=== PATIENT | male | born 1990 | race Two or more races ===

== ENCOUNTER → 2024-03-12 | Outpatient (CLI) | payer BC, SELFPAY ==
[2024-03-12 16:22] LABS: Basophils % (Auto) 0 % (0-2.5); Eosinophils # (Auto) 0.1 Thou/mm3 (0.0-0.5); Eosinophils % (Auto) 2 % (0-10); Hematocrit 47.3 % (41.0-53.0); Hemoglobin 16.4 g/dL (13.5-16.0); Immature Granulocytes % (Auto) 0 % (0-0); Immature Granulocytes Auto 0.02 Thou/mm3 (0.00-0.00); Lymphocytes # (Auto) 2.1 Thou/mm3 (1.0-4.8); Lymphocytes % (Auto) 31 % (10-50); Mean Corpuscular HGB Conc 34.7 g/dl (31.0-37.0); Mean Corpuscular Hemoglobin 29.4 pg (25.0-35.0); Mean Corpuscular Volume 85 fL (80-100); Monocytes # (Auto) 0.7 Thou/mm3 (0.0-0.8); Monocytes % (Auto) 10 % (0-12); Neutrophils # (Auto) 3.9 Thou/mm3 (1.8-7.7); Neutrophils % (Auto) 57 % (37-80); Nucleated Red Blood Cell % 0 /100 WBC (0); Platelet Count 212 Thou/mm3 (140-440); RDW Standard Deviation 39.2 fL (35.1-43.9); Red Blood Count 5.57 Miln/mm3 (4.50-5.90); White Blood Count 6.9 Thou/mm3 (3.8-10.6)
[2024-03-12 16:41] LABS: Alanine Aminotransferase 72 U/L (10-49); Albumin, Serum 4.8 gm/dL (3.5-5.0); Albumin/Globulin Ratio 1.9 (1.2-2.2); Alkaline Phosphatase 73 U/L (46-116); Anion Gap 4 (7-16); Aspartate Amino Transferase 49 U/L (0-34); BUN/Creatinine Ratio 8 Ratio (12-20); Bilirubin,Total 0.8 mg/dL (0.3-1.2); Blood Urea Nitrogen 8 mg/dL (9-23); Calcium 9.8 mg/dL (8.3-10.6); Calcium (Corrected) 9.8 mg/dL (8.5-10.1); Carbon Dioxide 26.3 mMol/L (20.0-31.0); Cardiac Risk Estimate 5.8 RATIO (4.0-6.7); Chloride 105 mMol/L (98-107); Cholesterol 238 mg/dL (132-200); Free T4 (Free Thyroxine) 1.22 ng/dL (0.89-1.76); Globulin 2.5 gm/dL (2.3-3.5); Glucose 90 mg/dL (74-106); HDL Cholesterol 41 mg/dL (40-60); LDL Cholesterol,Calculated 146 mg/dL (0-130); Osmolality,Calculated 268 (275-295); Potassium 4.1 mMol/L (3.4-5.1); Sodium 135 mMol/L (136-145); Thyroid Stimulating Hormone 2.12 uIU/mL (0.55-4.78); Total Protein 7.3 gm/dL (5.7-8.2); Triglycerides 256 mg/dL (30-150); eGFR > 60 See Note
== END | disposition home or self-care (01) ==
LOC: COPL 15:01
PROVIDERS: PCP Internal Medicine; Referring Provider Internal Medicine; Visit Provider Internal Medicine
DX: Z00.00 Encounter for general adult medical examination without abnormal findings (principal)
CPT/HCPCS: 36415; 80053; 80061; 84439; 84443; 85025

== ENCOUNTER → 2024-04-07 | Outpatient (CLI) | payer BC, SELFPAY ==
[2024-04-07 15:08] LABS: Hepatitis A Antibody IgM Non Reactive (Non React); Hepatitis B Core Antibody IgM Non Reactive (Non React); Hepatitis B Surface Antigen Non Reactive (Non React); Hepatitis C Antibody Non Reactive (Non React)
== END | disposition home or self-care (01) ==
PROVIDERS: PCP Internal Medicine; Referring Provider Internal Medicine; Visit Provider Internal Medicine
DX: R94.5 Abnormal results of liver function studies (principal)
CPT/HCPCS: 36415; 80074

== ENCOUNTER → 2024-08-21 | Outpatient (CLI) | payer BC, SELFPAY ==
[2024-08-21 10:07] LABS: Alanine Aminotransferase 52 U/L (10-49); Albumin, Serum 4.7 gm/dL (3.5-5.0); Alkaline Phosphatase 79 U/L (46-116); Aspartate Amino Transferase 32 U/L (0-34); Bilirubin,Direct 0.1 mg/dL (0.0-0.3); Bilirubin,Total 0.7 mg/dL (0.3-1.2)
== END | disposition home or self-care (01) ==
LOC: COPL 08:51
PROVIDERS: PCP Internal Medicine; Referring Provider Internal Medicine; Visit Provider Internal Medicine
DX: R94.5 Abnormal results of liver function studies (principal)
CPT/HCPCS: 36415; 80076

== ENCOUNTER 2024-09-08 21:16 | Emergency (ER) | payer OTHER, SELFPAY ==
[2024-09-08 21:16] VITALS: BMI 32.5
[2024-09-08 21:30] VITALS: BP 126/85; PULSE 77; RESP 20; TEMP 36.7; O2SAT 95
--- NOTE | 2024-09-08 22:03 | EDRME_ITS ---
Rapid Medical Screening Exam RME Arrival date/time: 09/08/24 21:16 Chief Complaint: Wound/Laceration Time Seen by Provider: 09/08/24 22:02 Vital signs: Vital Signs Temperature 98.0 F 09/08/24 21:30 Pulse Rate 77 09/08/24 21:30 Respiratory Rate 20 09/08/24 21:30 Blood Pressure 126/85 H 09/08/24 21:30 Pulse Oximetry (%) 95 09/08/24 21:30 Oxygen Delivery Method Room Air 09/08/24 21:30 Vital signs reviewed by provider: Yes RME Narrative: 34-year-old male presents to the ED with complaint of right upper leg laceration secondary to an injury he sustained at work. 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 His last tetanus is unknown. He denies any numbness or tingling distally.
[2024-09-08] MEDS: DIPHTH,PERTUSS(ACELL),TET VAC 0.5 ML SYR- ADULT IMi (22:55)
--- NOTE | 2024-09-08 23:45 | PD.EDADULT ---
ED General RME/HPI General Chief complaint: Wound/Laceration Stated complaint: RT LEG LAC WORKS COMP Time Seen by Provider: 09/08/24 22:02 Arrival date/time: 09/08/24 21:16 RME / HPI RME / HPI narrative: 34-year-old male presents to the ED with complaint of right upper leg laceration secondary to an injury he sustained at work. 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 His last tetanus is unknown. He denies any numbness or tingling distally. Related Data Home Medications ?Medication ?Instructions ?Recorded ?Confirmed No Known Home Medications 03/06/19 03/06/19 Allergies Allergy/AdvReac Type Severity Reaction Status Date / Time amoxicillin Allergy Mild Rash Verified 03/07/19 09:58 Review of Systems Review of Systems Systems Reviewed: All systems reviewed, normal except as documented Past Medical History Past Medical History NEUROLOGIC: Negative Seizures CARDIAC: Negative Congestive Heart Failure RESPIRATORY: Negative Chronic Obstructive Pulmonary Disease (COPD) GENITOURINARY: Negative Renal Disease ENDOCRINE: Negative Diabetes Mellitus Type 1 or Diabetes Mellitus Type 2 OTHER HISTORY: Negative Blood Transfusions (na), Blood Transfusion Reaction (na) or Anesthesia Reactions (na) Family History FAMILY HISTORY: Negative Family Cardiac Disorders Social History SMOKING STATUS: Never smoker ED Exam Narrative Physical exam: A&O, afebrile and non-toxic appearing 34 year old male, no acute distress. Lung are clear, RRR, Abdomen is non-distended. Laceration noted to the right thigh into the fatty tissue, approximately 10cm. No deep tissue involvement. Bleeding controlled. CMS intact distally. Moves all extremities well. Course Course Course Narrative: Wound was cleansed and irrigated. TDap updated. Anesthesia with Lidocain 1% w/o Epi. Wound closure with #7 4.0 Nylon sutures with good wound edge approximation. Patient tolerated procedure well. Antibiotic ointment applied and a dressing. Work Comp paperwork completed. Quality Measures none Orders Category Date Time Status Miscellaneous Nursing Order NOW Care 09/08/24 22:08 Completed TDap [Obtain Tdap Consent] X1 Care 09/08/24 22:08 Completed TET,DIP/PERT AC (Adult)-Tdap [Boostrix Adult (Tdap) Med 09/08/24 22:08 Discontinued Vacc] 0.5 ml IMI .ONCE ONE Vital Signs Vital signs: Vital Signs Temperature 98.0 F 09/08/24 21:30 Pulse Rate 77 09/08/24 21:30 Respiratory Rate 20 09/08/24 21:30 Blood Pressure 126/85 H 09/08/24 21:30 Pulse Oximetry (%) 95 09/08/24 21:30 Oxygen Delivery Method Room Air 09/08/24 21:30 PROCEDURES: Procedure Comment Anesthesia with Lidocaine 1% w/o Epi. Wound closure with #7 4.0 Nylon sutures with good wound edge approximation. Patient tolerated procedure well. Patient tolerated procedure well. Antibiotic ointment applied and a dressing. Discharge Plan Plan Patient Disposition: HOME (Self Care) Discharge Disposition comment: Stable and improved Prescriptions/Referrals Prescriptions/Med Rec: No Action No Known Home Medications Referrals: No Primary/Family,Physician [Primary Care Provider] - In 1 week Problem List Clinical Impression: Laceration Patient/Caregiver Discharge Instructions Education Materials: ED Laceration Ext Sutr Tape Ch Additional Instructions: Follow-up with your primary care physician in 24 to 48 hours. Return to the ED for any new or worsening symptoms. Print Language: [place] Stand Alone Forms: [facility] Award Info., Patient Portal Info Letter PA/VICE PRESIDENT UNDERWRITING Supervising Physician PA/COREY Supervising Physician: Dr. Dany CRUZ Narrative [facility] hospital course: 34-year-old male presents to the ED with complaint of right upper leg laceration secondary to an injury he sustained at work. 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 His last tetanus is unknown. He denies any numbness or tingling distally. A&O, afebrile and non-toxic appearing 34 year old male, no acute distress. Lung are clear, RRR, Abdomen is non-distended. Laceration noted to the right thigh into the fatty tissue, approximately 10cm. No deep tissue involvement. Bleeding controlled. CMS intact distally. Moves all extremities well. Wound was cleansed and irrigated. TDap updated. Anesthesia with Lidocain 1% w/o Epi. Wound closure with #7 4.0 Nylon sutures with good wound edge approximation. Patient tolerated procedure well. Antibiotic ointment applied and a dressing. Work Comp paperwork completed. Symptoms, exam and diagnostic studies are consistent with: Right thigh laceration without deep tissue involvement. Patient/family advised to follow-up with their PCP in 24-48 hours. Encouraged to return to the ED for any new or worsening symptoms. Medical Records Reviewed None Meds/Rx Considered, not Ordered None Labs/Rad/Tests considered, not Ordered None Chronic Illness/Social Conditions which may negatively complicate care or outcome(s)-explain: None or not applicable EKG EKG not done Lab Interpretation Labs: none Imaging Imaging interpretation: none Medication Administration(s) Medication Administration History Discontinued Medications Diphtheria/Tetanus/Acell Pertussis (Diphth,Pertuss(Acell),Tet Vac 0.5 Ml Syr- Adult) 0.5 ml IMi .ONCE ONE Stop: 09/08/24 22:09 Last Admin: 09/08/24 22:55 Dose: 0.5 ml Documented By: WILLAM As above. Diagnosis Differential diagnosis: right thigh laceration, Tendon laceration Differential dx and/or dx ruled out: Tendon laceration Most likely dx, and/or detailed dx discussion: Right thigh laceration Dispositon Disposition: Discharge Home Disposition comments: Stable for discharge
== END 2024-09-09 00:46 | disposition home or self-care (01) ==
PROVIDERS: Emergency Provider Emergency Medicine
DX: S71.111A Laceration without foreign body, right thigh, initial encounter (principal); W31.89XA Contact with other specified machinery, initial encounter; Y93.89 Activity, other specified; Y99.0 Civilian activity done for income or pay; Z23 Encounter for immunization
CPT/HCPCS: 12001; 90471; 90715; 99283